=== PATIENT | male | born 1970 | race Caucasian/White ===

== ENCOUNTER 2018-02-15 17:21 | Inpatient (IN) | payer MEDICARE, OTHER ==
[~2018-02-15] VITALS: Ht 185.4 cm; Wt 81.4 kg
[~2018-02-15 17:21] MED LIST: COUM10TA PO; HYDR-3129 PO; LIPI10TA PO; LORA-474 PO
[2018-02-15 17:27] VITALS: BP 141/74; PULSE 94; RESP 20; TEMP 99; O2SAT 98
[2018-02-15 17:35] VITALS: BP 125/78; PULSE 89; RESP 18; TEMP 98.1; O2SAT 99
[2018-02-15 18:36] LABS: AUTOMATED NEUTROPHIL # 6.3 TH/MM3 (1.8-7.7); BASOPHIL # 0.1 TH/MM3 (0-0.2); EOSINOPHIL # 0.5 TH/MM3 (0-0.4); HEMATOCRIT 40.5 % (39.0-51.0); HEMOGLOBIN 14.1 GM/DL (13.0-17.0); LYMPH % 31.7 % (9.0-44.0); LYMPHOCYTE # 3.7 TH/MM3 (1.0-4.8); MEAN CELL VOLUME 85.9 FL (80.0-100.0); MEAN CORPUSCULAR HEMOGLOBIN 29.9 PG (27.0-34.0); MEAN CORPUSCULAR HGB CONC 34.8 % (32.0-36.0); MEAN PLATELET VOLUME 7.1 FL (7.0-11.0); MONO % 9.8 % (0.0-8.0); MONOCYTE # 1.1 TH/MM3 (0-0.9); NEUT % 53.5 % (16.0-70.0); PLATELET COUNT 439 TH/MM3 (150-450); RED BLOOD COUNT 4.71 MIL/MM3 (4.50-5.90); RED CELL DISTRIBUTION WIDTH 15.1 % (11.6-17.2); WHITE BLOOD COUNT 11.7 TH/MM3 (4.0-11.0)
[2018-02-15] MEDS ORDERED: LITH300T PO (18:50)
[2018-02-15] MEDS ORDERED: PAXI30TA7 PO (18:50)
[2018-02-15 19:01] LABS: ALBUMIN 3.4 GM/DL (3.4-5.0); ALT (GPT) 16 U/L (12-78); AST (GOT) 13 U/L (15-37); BICARBONATE 22.7 MEQ/L (21.0-32.0); BLOOD UREA NITROGEN 16 MG/DL (7-18); CALCIUM 8.8 MG/DL (8.5-10.1); CHLORIDE 102 MEQ/L (98-107); CREATININE 1.06 MG/DL (0.60-1.30); GLOMERULAR FILTRATION RATE 75 ML/MIN (>89); GLUCOSE,RANDOM 117 MG/DL (74-106); SODIUM (NA) 136 MEQ/L (136-145)
[2018-02-15 19:11] LABS: ALKALINE PHOSPHATASE 69 U/L (45-117); TOTAL BILIRUBIN ADULT 0.6 MG/DL (0.2-1.0); TOTAL PROTEIN 7.7 GM/DL (6.4-8.2)
[2018-02-15 20:36] VITALS: BP 112/77; PULSE 82; RESP 12
--- NOTE | 2018-02-15 21:20 | PD ---
HPI Chief Complaint: Psychiatric Symptoms Time Seen by Provider: 20:51 Travel History International Travel<30 days: No Contact w/Intl Traveler<30days: No Traveled to known affect area: No History of Present Illness HPI 47-year-old male presents the ED seeking voluntary psychiatric evaluation. Patient denies suicidal ideation. He does state that he is "sick of living this way." Patient states that he has been out of senior care since July, has not taken any psychiatric medications since that time. He states that he is essentially homeless, couch surfing among friends and occasionally staying with his . He is unsure of any formal psychiatric diagnosis and does not know which medications he was taking. He complains of 4/10 dull headache, similar to previous headaches. Denies other somatic complaints. He endorses daily cigarette smoking. Denies alcohol or illicit drug use. PFSH Past Medical History Medical History: Denies Significant Hx Arthritis: No Asthma: No Autoimmune Disease: No Blood Disorders: No Anxiety: Yes Depression: Yes Heart Rhythm Problems: No Cancer: No Cardiovascular Problems: No High Cholesterol: No Chemotherapy: No Chest Pain: No Congestive Heart Failure: No COPD: No Cerebrovascular Accident: Yes (2009 & TIA in 2013) Diabetes: No Patient Takes Glucophage: No Diminished Hearing: No Endocrine: No GERD: No Glaucoma: No Genitourinary: No Headaches: No Hepatitis: No Hiatal Hernia: No Hypertension: No Immune Disorder: No Kidney Stones: No Medical other: Yes Musculoskeletal: Yes (L5/S1 HERNIATION AND SLIPPED DISK) Neurologic: Yes Psychiatric: Yes Reproductive: No Respiratory: No Immunizations Current: No Migraines: No Myocardial Infarction: No Radiation Therapy: No Renal Failure: No Seizures: No Sickle Cell Disease: No Sleep Apnea: No Thyroid Disease: No Ulcer: No Tetanus Vaccination: < 5 Years ?: Not Past Surgical History Abdominal Surgery: No AICD: No Appendectomy: No Arteriovenous Shunt: No Cardiac Surgery: No Cholecystectomy: No Ear Surgery: No Endocrine Surgery: No Eye Surgery: No Genitourinary Surgery: No Gynecologic Surgery: No Insulin Pump: No Joint Replacement: No Oral Surgery: No Pacemaker: No Thoracic Surgery: No Social History Alcohol Use: No (Pt denies. ) Tobacco Use: Yes (1PPD) Substance Use: No Allergies-Medications (Allergen,Severity, Reaction): Coded Allergies: No Known Allergies (Verified , 11/05/14) Reported Meds & Prescriptions Reported Meds & Active Scripts Active Reported Paxil (Paroxetine HCl) 30 Mg Tab 60 Mg PO DAILY NEB [place] Carbonate ER ([place] Carbonate) 300 Mg Tab 300 Mg PO BID Review of Systems Except as stated in HPI: all other systems reviewed are Neg Physical Exam Narrative GENERAL: Well-nourished, well-developed white male no acute distress. SKIN: Focused skin assessment warm/dry. HEAD: Normocephalic. EYES: No scleral icterus. No injection or drainage. NECK: Supple, trachea midline. No JVD or lymphadenopathy. CARDIOVASCULAR: Regular rate and rhythm without murmurs, gallops, or rubs. RESPIRATORY: Breath sounds clear and equal bilaterally. No accessory muscle use. GASTROINTESTINAL: Abdomen soft, non-tender, nondistended. Active bowel sounds. MUSCULOSKELETAL: No cyanosis, or edema. Walks with a normal gait. NEUROLOGICAL: Awake and alert. Cranial nerves II through XII intact. Motor and sensory grossly within normal limits. Five out of 5 muscle strength in all muscle groups. Normal speech. BACK: Nontender without obvious deformity. No CVA tenderness. Data Data Last Documented VS Vital Signs Date Time Temp Pulse Resp B/P (MAP) Pulse Ox O2 Delivery O2 Flow Rate FiO2 02/15/18 20:36 82 12 112/77 (89) 02/15/18 17:35 98.1 99 Room Air Orders Orders Complete Blood Count With Diff (02/15/18 18:05) Comprehensive Metabolic Panel (02/15/18 18:05) Thyroid Stimulating Hormone (02/15/18 18:05) Psych Screen (02/15/18 18:05) Drug Screen, Random Urine (02/15/18 18:05) Alcohol (Ethanol) (02/15/18 18:05) Diet Regular Basic (02/15/18 Dinner) Labs Laboratory Tests Test 02/15/18 18:11 02/15/18 19:20 White Blood Count 11.7 TH/MM3 Red Blood Count 4.71 MIL/MM3 Hemoglobin 14.1 GM/DL Hematocrit 40.5 % Mean Corpuscular Volume 85.9 FL Mean Corpuscular Hemoglobin 29.9 PG Mean Corpuscular Hemoglobin Concent 34.8 % Red Cell Distribution Width 15.1 % Platelet Count 439 TH/MM3 Mean Platelet Volume 7.1 FL Neutrophils (%) (Auto) 53.5 % Lymphocytes (%) (Auto) 31.7 % Monocytes (%) (Auto) 9.8 % Eosinophils (%) (Auto) 4.0 % Basophils (%) (Auto) 1.0 % Neutrophils # (Auto) 6.3 TH/MM3 Lymphocytes # (Auto) 3.7 TH/MM3 Monocytes # (Auto) 1.1 TH/MM3 Eosinophils # (Auto) 0.5 TH/MM3 Basophils # (Auto) 0.1 TH/MM3 CBC Comment DIFF FINAL Differential Comment Blood Urea Nitrogen 16 MG/DL Creatinine 1.06 MG/DL Random Glucose 117 MG/DL Total Protein 7.7 GM/DL Albumin 3.4 GM/DL Calcium Level 8.8 MG/DL Alkaline Phosphatase 69 U/L Aspartate Amino Transf (AST/SGOT) 13 U/L Alanine Aminotransferase (ALT/SGPT) 16 U/L Total Bilirubin 0.6 MG/DL Sodium Level 136 MEQ/L Potassium Level 3.8 MEQ/L Chloride Level 102 MEQ/L Carbon Dioxide Level 22.7 MEQ/L Anion Gap 11 MEQ/L Estimat Glomerular Filtration Rate 75 ML/MIN Thyroid Stimulating Hormone 3rd Gen 1.200 uIU/ML Ethyl Alcohol Level LESS THAN 3 MG/DL Urine Opiates Screen NEG Urine Barbiturates Screen NEG Urine Amphetamines Screen NEG Urine Benzodiazepines Screen NEG Urine Cocaine Screen NEG Urine Cannabinoids Screen NEG MDM Medical Decision Making Medical Screen Exam Complete: Yes Emergency Medical Condition: Yes Differential Diagnosis Adjustment disorder versus anxiety versus bipolar versus depression versus dementia versus electrolyte disorder versus malingering versus mood disorder versus ODD versus psychosis versus PTSD versus schizophrenia versus schizoaffective disorder versus substance-induced mood disorder versus other Narrative Course 47-year-old male presents the ED seeking voluntary psychiatric evaluation. Patient denies suicidal ideation. He does state that he is "sick of living this way." Patient states that he has been out of senior care since July, has not taken any psychiatric medications since that time. He states that he is essentially homeless, couch surfing among friends and occasionally staying with his . He is unsure of any formal psychiatric diagnosis and does not know which medications he was taking. He complains of 4/10 dull headache, similar to previous headaches. Denies other somatic complaints. He endorses daily cigarette smoking. Denies alcohol or illicit drug use. Vitals reviewed. Physical exam is unremarkable. Patient was provided 800 mg ibuprofen. CBC, CMP , tox screen and alcohol level unremarkable. Patient is medically cleared for psychiatric evaluation. Karolina Castano February 15, 2018 21:20
[2018-02-15] MEDS ORDERED: IBUPROFEN 800 MG TAB PO ONE (21:30)
[2018-02-16 00:22] VITALS: BP 110/75; PULSE 63; RESP 18; TEMP 98.2; O2SAT 100
[2018-02-16 05:39] VITALS: BP 107/68; PULSE 68; RESP 18
--- NOTE | 2018-02-16 14:10 | HHI.HP ---
Provisional Diagnosis Admission Date 02/16/2018 [place] I. 1. Adjustment disorder with depressed mood Rule out some degree of symptom exaggeration or malingering [place] II. 1. Rule out some degree of personality disorder Certification of Person's Competence To Provide Express and Informed Consent I have personally examined Mitchell Antonio, III , a person being served at [facility] on, February 16, 2018 14:10. Express and informed consent means consent voluntarily given in writing, by a competent person, after sufficient explanation and disclosure of the subject matter involved to enable the person to make a knowing and willful decision without any element of force, fraud, deceit, duress, or other form of constraint or coercion. This person is 18 years of age or older, is not now known to be incompetent to consent to treatment with a guardian advocate, and does not have a health care surrogate or proxy currently making medical treatment decisions. I have found this person to be one of the following: [x] Competent to provide express and informed consent, as defined above, for voluntary admission to this facility and is competent to provide express and informed consent for treatment. He/she has the consistent capacity to make well reasoned, willful, and knowing decisions concerning his or her medical or mental health treatment. The person fully and consistently understands the purpose of the admission for examination/placement and is fully capable of personally exercising all rights assured [place] Incompetent to provide express and informed consent to voluntary admission, and this is incompetent to provide express and informed consent to treatment. The person must be transferred to involuntary status and a petition for a guardian advocate filed with the Circuit Court. [] Refusing to provide express and informed consent to voluntary admission but is competent to provide express and informed consent for treatment. The person must be discharged or transferred to involuntary status. Form shall be completed within 24 hours of a person's arrival at the receiving facility and filed in the clinical record of each person: 1. Admitted on a voluntary basis 2. Permitted to provide express and informed consent to his/her own treatment 3. Allowed to transfer from involuntary to voluntary status 4. Prior to permitting a person to consent to his or her own treatment after having been previously found incompetent to consent to treatment. History of Present Illness Capacity: Has Capacity Psych Chief Complaint: Depression HPI Mr. Antonio is a 47-year-old male with a chart history of adjustment disorder, substance related mood disorder, personality disorder who presented to the emergency department voluntarily for psychiatric evaluation. He was most recently psychiatrically admitted here under Dr. Yousif in 2013. Electronic medical record reviewed. Patient seen and examined. Chart reviewed. Case discussed with nursing staff. On my examination today, patient is an inconsistent historian. For example, he denies audiovisual hallucinations to me but reported them to the psychiatric screener. Likewise, the patient reported a legal history to the psychiatric screener but denies this to me. I also gather that the patient has a significant substance use history, but he denies any such issues to me. Some degree of manipulation/secondary gain is certainly in the differential. In any event, the patient reports to me that for the last few weeks he has been feeling increasingly sad and depressed. He tells me that he has suffered a lot of losses. He endorses a perfusion of psychiatric symptoms including poor sleep , poor appetite, poor energy, decreased self-care, social withdrawal, anxiety/ worry, nightmares/flashbacks to history of trauma to name a few. He denies any audiovisual hallucinations presently. I can appreciate no delusional material. He reports that he was contemplating suicide yesterday evening although he denies any suicidal ideation presently. No reported urge to hurt himself on the inpatient unit. No hypomanic or manic symptoms presently, nor can I elicit any history consistent with hypomania or solitario. He tells me "life has been a horrible freakin' struggle." Remainder of the psychiatric ROS is negative. No acute physical complaints although the patient does have numerous chronic musculoskeletal pain complaints. Past psychiatric history: The patient is unsure of previous psychiatric diagnoses. He is not presently under the care of a psychiatrist. Most recent psychiatric admission was here at [facility]. He denies a history of suicide attempts noting "I usually come here" first. He reports that trazodone has caused priapism in the past, and I have added this as an adverse reaction. He reports that he has done the best with Strattera and Xanax, although in context there seems to be a distinct possibility that he is simply seeking for these medications. Family history: The patient endorses family history of some sort of mental illness although he is unsure of what. He denies a family history of suicide. Chemical dependency history: The patient denies any abuse of drugs or alcohol. Social history: The patient reports that he is living with his of 20 years. He describes their relationship as "confusing." He has 3 children. He has 11 grade education. He describes himself as "partially disabled." He denies any or legal history, although psychiatric screener did document released from nursing home in the fall of last year. He denies any access to guns or firearms. He is a Muslim and says that this is a significant source of support for him. He endorses a history of some sort of childhood trauma. 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 He also reports a history of chronic back pain and other chronic musculoskeletal pains. Reported Medications Paroxetine (Paxil) 30 Mg Tab, 60 MG PO DAILY NEB, #30 TAB 0 Refills 02/15/18 [place] Carbonate ER ([place] Carbonate ER) 300 Mg Tab, 300 MG PO BID, TAB 0 Refills 02/15/18 Discontinued Reported Medications Hydrocodone-Acetaminophen 10-325 mg (Gary 10-325 mg) Acetaminophen 325/10 Hydrocodone Tab, 1 TAB PO BID Y for PAIN, TAB 11/05/14 Atorvastatin (Lipitor 10 Mg Tab) 10 Mg Tab, 1 TAB PO HS, TAB 08/18/14 Warfarin Sodium (Coumadin 10 mg) Warfarin Sodium 10 mg Tab, 1 TAB PO DAILY, TAB 08/18/14 Discontinued Scripts Lorazepam (Ativan) 1 Mg Tab, 1 MG PO BID Y for ANXIETY, #60 TAB 0 Refills Prov:Kevyn Tracy MD 11/19/14 Patient reports that he takes no home medications Patient's Strengths (min. 2) In a monitored setting. Verbally fluent. Physical Exam Physical exam completed by ED provider. On my examination today, the patient appears to be in no acute physical distress. No motor abnormalities noted, except the patient does have some left-sided weakness. Labs and vitals reviewed : Vital Signs Vital Signs Date Time Temp Pulse Resp B/P (MAP) Pulse Ox O2 Delivery O2 Flow Rate FiO2 02/16/18 05:39 68 18 107/68 (81) Room Air 02/16/18 00:22 98.2 100 Lab Results Test 02/15/18 18:11 02/15/18 19:20 White Blood Count 11.7 TH/MM3 Red Blood Count 4.71 MIL/MM3 Hemoglobin 14.1 GM/DL Hematocrit 40.5 % Mean Corpuscular Volume 85.9 FL Mean Corpuscular Hemoglobin 29.9 PG Mean Corpuscular Hemoglobin Concent 34.8 % Red Cell Distribution Width 15.1 % Platelet Count 439 TH/MM3 Mean Platelet Volume 7.1 FL Neutrophils (%) (Auto) 53.5 % Lymphocytes (%) (Auto) 31.7 % Monocytes (%) (Auto) 9.8 % Eosinophils (%) (Auto) 4.0 % Basophils (%) (Auto) 1.0 % Neutrophils # (Auto) 6.3 TH/MM3 Lymphocytes # (Auto) 3.7 TH/MM3 Monocytes # (Auto) 1.1 TH/MM3 Eosinophils # (Auto) 0.5 TH/MM3 Basophils # (Auto) 0.1 TH/MM3 CBC Comment DIFF FINAL Differential Comment Blood Urea Nitrogen 16 MG/DL Creatinine 1.06 MG/DL Random Glucose 117 MG/DL Total Protein 7.7 GM/DL Albumin 3.4 GM/DL Calcium Level 8.8 MG/DL Alkaline Phosphatase 69 U/L Aspartate Amino Transf (AST/SGOT) 13 U/L Alanine Aminotransferase (ALT/SGPT) 16 U/L Total Bilirubin 0.6 MG/DL Sodium Level 136 MEQ/L Potassium Level 3.8 MEQ/L Chloride Level 102 MEQ/L Carbon Dioxide Level 22.7 MEQ/L Anion Gap 11 MEQ/L Estimat Glomerular Filtration Rate 75 ML/MIN Thyroid Stimulating Hormone 3rd Gen 1.200 uIU/ML Ethyl Alcohol Level LESS THAN 3 MG/DL Urine Opiates Screen NEG Urine Barbiturates Screen NEG Urine Amphetamines Screen NEG Urine Benzodiazepines Screen NEG Urine Cocaine Screen NEG Urine Cannabinoids Screen NEG Mental Status Examination Appearance: Disheveled Consciousness: Alert Orientation: x4 Motor Activity: Other (No motor abnormalities noted) Speech: Hesitant Language: Adequate Fund of Knowledge: Adequate Attention and Concentration: Adequate Memory: Unremarkable (Grossly intact on clinical exam) Mood: Anxious, Other (Depressed) Affect: Other (Dysphoric) Thought Process & Associations: Intact Thought Content: Appropriate Hallucination Type: None Delusion Type: None Suicidal Ideation: No (Denies presently but says that he was experiencing suicidal ideation overnight) Suicidal Plan: No Suicidal Intention: No (No reported urge to hurt himself on the inpatient unit) Homicidal Ideation: No Homicidal Plan: No Homicidal Intention: No Insight: Fair Judgment: Impulsive Assessment & Plan Problem List: (1) Adjustment disorder with depressed mood ICD Codes: F43.21 - Adjustment disorder with depressed mood Assessment & Plan 47-year-old male with psychiatric history as detailed above who presents voluntarily for psychiatric evaluation. On my examination today, the patient elaborates a variety of psychiatric symptomatology, mostly depressive in nature. There is a somewhat variable and manipulative quality to the patient's history, and some degree of symptom exaggeration or malingering is certainly in the differential. It is also possible that the patient has some degree of personality disorder. Patient prioritizes improvement in sleep along with mood in selection of medication, and so after a discussion with the patient of his various options a trial of Remeron seems most reasonable. I will plan to admit the patient to the inpatient psychiatric unit for safety, observation and stabilization. Admit inpatient. Voluntary status. Initiate Remeron 15 mg at bedtime for mood with plans to titrate to effect. Atarax as needed for anxiety. Cogentin as needed for EPS. Benadryl as needed for sleep. PT/OT/falls precautions. Check CBC to follow up mild leukocytosis, BMP to follow up decreased GFR, hemoglobin A1c and lipid panel in the morning. Vitals every shift. Counselor to see. Collateral information. Disposition planning. Estimated length of stay: 5-7 days. Discharge Planning Pending psychiatric stabilization Request HC Surrog/Guard Advoc?: No Pritesh Machuca MD February 16, 2018 14:10
[2018-02-16] MEDS ORDERED: BENZTROPINE MESYLATE 1 MG TAB PO PRN (14:15)
[2018-02-16] MEDS ORDERED: hydrOXYzine HCL 50 MG TAB PO PRN (14:15)
[2018-02-16] MEDS ORDERED: MAGNESIUM HYDROXIDE SUSP 30 ML CUP PO PRN (14:15)
[2018-02-16] MEDS ORDERED: NICOTINE 21 MG/24 HR PATCH T-DERMAL PRN (14:15)
[2018-02-16] MEDS ORDERED: ALUMINUM/MAGNESIUM/SIMETH 30 ML CUP PO PRN (14:15)
[2018-02-16] MEDS ORDERED: ACETAMINOPHEN 325 MG TAB PO PRN (14:15)
[2018-02-16] MEDS ORDERED: BENZTROPINE MESYLATE 2 MG/2 ML VIAL IM PRN (14:15)
[2018-02-16] MEDS ORDERED: REMOVE OLD NICODERM (NICOTINE) PATCH T-DERMAL PRN (14:30)
[2018-02-16 16:43] VITALS: BP 107/63; PULSE 70; RESP 16; TEMP 98; O2SAT 98
[2018-02-16] MEDS ORDERED: diphenhydrAMINE HCL 50 MG CAP PO PRN (21:00)
[2018-02-16] MEDS: MIRTAZAPINE 15 MG TAB PO SCH (21:19)
[2018-02-17 06:17] VITALS: BP 110/66; PULSE 69; RESP 16; TEMP 98.2; O2SAT 98
[2018-02-17] MEDS: IBUPROFEN 600 MG TAB PO PRN ×3 (06:59→19:38)
--- NOTE | 2018-02-17 09:45 | HHI.PYPN ---
Subjective Chief Complaint: Depression Remarks Patient was initially admitted by Dr. Pritesh Machuca's H&P reviewed and agreed with. I have done the initial psychiatric template orders and review of medication reconciliation. Patient is seen in his room with nurse harrison Black, chart reviewed, patient complaint medications, patient discussed with nurse. Patient laying quietly in bed states he recognizes me from prior contact and number of years ago. Patient presented today similar to his presentation with Dr. Machuca. He is vague and rambling and sometimes contradictory with his history. Complaining of many stressors in bed things happened in the past without being specific about them. He is vague about suicidality. The would take the suicide pill. He does deny voices at this time. He has been compliant with medications though staff also notices some subtle drug seeking for more potent medications. For now continue treatment no change Review of Systems Except as stated in HPI: all other systems reviewed are Neg Mental Status Examination Appearance: Disheveled Consciousness: Alert Orientation: x4 Motor Activity: Other (No motor abnormalities noted) Speech: Hesitant Language: Adequate Fund of Knowledge: Adequate Attention and Concentration: Adequate Memory: Unremarkable (Grossly intact on clinical exam) Mood: Anxious, Other (Depressed) Affect: Other (Dysphoric) Thought Process & Associations: Intact Thought Content: Appropriate Hallucination Type: None Delusion Type: None Suicidal Ideation: No (Denies presently but says that he was experiencing suicidal ideation overnight) Suicidal Plan: No Suicidal Intention: No (No reported urge to hurt himself on the inpatient unit) Homicidal Ideation: No Homicidal Plan: No Homicidal Intention: No Insight: Fair Judgment: Impulsive Results Vitals/IOs Vital Signs Date Time Temp Pulse Resp B/P (MAP) Pulse Ox O2 Delivery O2 Flow Rate FiO2 02/17/18 06:17 98.2 69 16 110/66 (81) 98 02/16/18 05:39 Room Air Assessment & Plan Problem List: (1) Adjustment disorder with depressed mood ICD Codes: F43.21 - Adjustment disorder with depressed mood Assessment & Plan Estimated LOS: days patient is somewhat depressed making vague suicidal statements though there may be a degree of manipulation involved with this. For now continue treatment no change Justification for Cont. Inpt. At this time patient would decompensate and placed on a lower level of care Discharge Planning Possible return home with family Request HC Surrog/Guard Advoc?: No Kevyn Tracy MD February 17, 2018 09:45
[2018-02-17] MEDS: hydrOXYzine HCL 50 MG TAB PO PRN ×2 (13:02→19:38)
[2018-02-17 14:50] LABS: AUTOMATED NEUTROPHIL # 7.3 TH/MM3 (1.8-7.7); BASOPHIL # 0.1 TH/MM3 (0-0.2); BASOPHIL % 0.9 % (0.0-2.0); EOSINOPHIL # 0.3 TH/MM3 (0-0.4); EOSINOPHIL % 2.8 % (0.0-4.0); HEMATOCRIT 44.1 % (39.0-51.0); HEMOGLOBIN 14.5 GM/DL (13.0-17.0); LYMPH % 25.6 % (9.0-44.0); MEAN CELL VOLUME 86.8 FL (80.0-100.0); MEAN CORPUSCULAR HEMOGLOBIN 28.5 PG (27.0-34.0); MEAN CORPUSCULAR HGB CONC 32.8 % (32.0-36.0); MONOCYTE # 0.9 TH/MM3 (0-0.9); NEUT % 62.7 % (16.0-70.0); PLATELET COUNT 468 TH/MM3 (150-450); RED BLOOD COUNT 5.08 MIL/MM3 (4.50-5.90); RED CELL DISTRIBUTION WIDTH 15.4 % (11.6-17.2); WHITE BLOOD COUNT 11.6 TH/MM3 (4.0-11.0)
[2018-02-17 15:14] LABS: BICARBONATE 26.3 MEQ/L (21.0-32.0); BLOOD UREA NITROGEN 19 MG/DL (7-18); CALCIUM 8.8 MG/DL (8.5-10.1); CHLORIDE 104 MEQ/L (98-107); CHOLESTEROL 173 MG/DL (120-200); CREATININE 1.04 MG/DL (0.60-1.30); GLOMERULAR FILTRATION RATE 77 ML/MIN (>89); GLUCOSE,RANDOM 104 MG/DL (74-106); SODIUM (NA) 140 MEQ/L (136-145); TRIGLYCERIDES 218 MG/DL (42-150)
[2018-02-17 15:17] LABS: HDL CHOLESTEROL 33.9 MG/DL (40.0-60.0); LDL CHOLESTEROL 96 MG/DL (0-99)
[2018-02-17 18:00] VITALS: BP 112/59; PULSE 82; RESP 17; TEMP 98.5; O2SAT 100
[2018-02-17] MEDS: MIRTAZAPINE 15 MG TAB PO SCH (21:00)
[2018-02-18 06:18] VITALS: BP 134/73; PULSE 57; RESP 16; TEMP 97.8; O2SAT 99
[2018-02-18] MEDS: hydrOXYzine HCL 50 MG TAB PO PRN ×2 (06:26→14:55)
[2018-02-18] MEDS: IBUPROFEN 600 MG TAB PO PRN ×2 (06:26→21:35)
--- NOTE | 2018-02-18 13:36 | HHI.PYPN ---
Subjective Chief Complaint: Depression Remarks Chart reviewed and discussed with nurse. Patient in the day room talking with other patients. Patient endorses that he feels depressed and that his is struggling at home. He states, " since my stroke, I am a burden to my and my family." He states that he doesn't think he should return home and that he might be better in a placement. He states that the Remeron may help him sleep, but that he is not helping him regarding how he feels. He states that in the past he has been on Cymbalta and that did help. When asked about his suicidal thoughts he responds, " I have thoughts everyday, but I don't have a plan or do I feel I would ever act on my thoughts." Mental Status Examination Appearance: Disheveled Consciousness: Alert Orientation: x4 Motor Activity: Other (No motor abnormalities noted) Speech: Hesitant Language: Adequate Fund of Knowledge: Adequate Attention and Concentration: Adequate Memory: Unremarkable (Grossly intact on clinical exam) Mood: Anxious, Other (Depressed) Affect: Other (Dysphoric) Thought Process & Associations: Intact Thought Content: Appropriate Hallucination Type: None Delusion Type: None Suicidal Ideation: No (Denies presently but says that he was experiencing suicidal ideation overnight) Suicidal Plan: No Suicidal Intention: No (No reported urge to hurt himself on the inpatient unit) Homicidal Ideation: No Homicidal Plan: No Homicidal Intention: No Insight: Fair Judgment: Impulsive Results Labs Test 02/17/18 14:08 White Blood Count 11.6 TH/MM3 Red Blood Count 5.08 MIL/MM3 Hemoglobin 14.5 GM/DL Hematocrit 44.1 % Mean Corpuscular Volume 86.8 FL Mean Corpuscular Hemoglobin 28.5 PG Mean Corpuscular Hemoglobin Concent 32.8 % Red Cell Distribution Width 15.4 % Platelet Count 468 TH/MM3 Mean Platelet Volume 7.0 FL Neutrophils (%) (Auto) 62.7 % Lymphocytes (%) (Auto) 25.6 % Monocytes (%) (Auto) 8.0 % Eosinophils (%) (Auto) 2.8 % Basophils (%) (Auto) 0.9 % Neutrophils # (Auto) 7.3 TH/MM3 Lymphocytes # (Auto) 3.0 TH/MM3 Monocytes # (Auto) 0.9 TH/MM3 Eosinophils # (Auto) 0.3 TH/MM3 Basophils # (Auto) 0.1 TH/MM3 CBC Comment DIFF FINAL Differential Comment Blood Urea Nitrogen 19 MG/DL Creatinine 1.04 MG/DL Random Glucose 104 MG/DL Calcium Level 8.8 MG/DL Sodium Level 140 MEQ/L Potassium Level 4.1 MEQ/L Chloride Level 104 MEQ/L Carbon Dioxide Level 26.3 MEQ/L Anion Gap 10 MEQ/L Estimat Glomerular Filtration Rate 77 ML/MIN Triglycerides Level 218 MG/DL Cholesterol Level 173 MG/DL LDL Cholesterol 96 MG/DL HDL Cholesterol 33.9 MG/DL Cholesterol/HDL Ratio 5.10 RATIO Vitals/IOs Vital Signs Date Time Temp Pulse Resp B/P (MAP) Pulse Ox O2 Delivery O2 Flow Rate FiO2 02/18/18 06:18 97.8 57 16 134/73 (93) 99 02/16/18 05:39 Room Air Intake and Output 02/18/18 02/18/18 02/19/18 08:00 16:00 00:00 Intake Total 480 ml Balance 480 ml Assessment & Plan Problem List: (1) Adjustment disorder with depressed mood ICD Codes: F43.21 - Adjustment disorder with depressed mood Assessment & Plan: Patient is a 47 y/o man with children who had a stroke. He has limitations with his left side. He feels that he is a burden to his family and endorses that he has been depressed. Denies suicidal ideations. Asking to be prescribed Cymbalta. Assessment & Plan Estimated LOS: days Justification for Cont. Inpt. Moving patient to a lower level of care may result in his decompensation. Request HC Surrog/Guard Advoc?: Briseyda Vazquez February 18, 2018 13:36
[2018-02-18 18:00] VITALS: BP 107/60; PULSE 75; RESP 18; TEMP 97.9; O2SAT 98
[2018-02-18] MEDS: MIRTAZAPINE 15 MG TAB PO SCH (21:29)
[2018-02-19 05:14] VITALS: BP 105/63; PULSE 72; RESP 16; TEMP 98; O2SAT 98
[2018-02-19] MEDS: hydrOXYzine HCL 50 MG TAB PO PRN ×2 (06:54→13:44)
[2018-02-19] MEDS: IBUPROFEN 600 MG TAB PO PRN ×3 (06:55→21:48)
[2018-02-19 12:58] LABS: HEMOGLOBIN A1C 5.9 % (4.3-6.0)
--- NOTE | 2018-02-19 14:55 | HHI.PYPN ---
Subjective Chief Complaint: Depression Remarks Patient seen and examined with nurse in weekend coverage. Chart reviewed. Case discussed with nursing staff who notes patient is irritable and somewhat entitled. On my examination today, the patient reports that he feels "awful." He tells me that his outlook is negative and he feels like he is isolating more. He complains of ongoing poor sleep. He does not describe any active suicidal ideation but issues somewhat manipulative seeming threats of what he might do on discharge such as "I am afraid I am going to go out and things will not be good." He feels that he is in need of something to help control mood instability. No side effects from medications. No physical complaints. Review of Systems Except as stated in HPI: all other systems reviewed are Neg Mental Status Examination Appearance: Disheveled Consciousness: Alert Orientation: x4 Motor Activity: Other (No abnormal motor movements noted) Speech: Hesitant Language: Adequate Fund of Knowledge: Adequate Attention and Concentration: Adequate Memory: Unremarkable (Grossly intact on clinical exam) Mood: Irritable, Other (Dysphoric) Affect: Other (Restricted) Thought Process & Associations: Intact Thought Content: Appropriate Hallucination Type: None Delusion Type: None Suicidal Ideation: No (No SI presently but see above) Homicidal Ideation: No Insight: Fair Judgment: Impulsive Results Labs Labs reviewed Vitals/IOs Vital Signs Date Time Temp Pulse Resp B/P (MAP) Pulse Ox O2 Delivery O2 Flow Rate FiO2 02/19/18 05:14 98.0 72 16 105/63 (77) 98 02/16/18 05:39 Room Air Assessment & Plan Problem List: (1) Adjustment disorder with depressed mood ICD Codes: F43.21 - Adjustment disorder with depressed mood Assessment & Plan Inadequate response to current therapy. Titrate Remeron to 30 mg at bedtime to target dysphoria. Add low-dose Depakote DR 250 mg twice daily for mood stabilization. LFTs and platelets okay. Plan to check a level after appropriate interval. R/B/A for medications discussed with patient. Continue to monitor on inpatient unit. Continue other medications and care as ordered. Justification for Cont. Inpt. Med changes. Risk for decompensation in less restrictive environment. Discharge Planning As ordered by primary psychiatrist Request HC Surrog/Guard Advoc?: No Pritesh Machuca MD February 19, 2018 14:55
[2018-02-19 19:05] VITALS: BP 110/60; PULSE 72; RESP 16; TEMP 98.2; O2SAT 99
[2018-02-19] MEDS: DIVALPROEX SODIUM DELAYED RELEASE 250 MG TAB PO SCH (21:11)
[2018-02-19] MEDS: MIRTAZAPINE 15 MG TAB PO SCH (21:12)
[2018-02-20 06:00] VITALS: BP 112/60; PULSE 72; RESP 16; TEMP 97.8; O2SAT 98
[2018-02-20] MEDS: hydrOXYzine HCL 50 MG TAB PO PRN ×3 (06:27→20:16)
[2018-02-20] MEDS: IBUPROFEN 600 MG TAB PO PRN ×3 (06:27→20:16)
[2018-02-20] MEDS: DIVALPROEX SODIUM DELAYED RELEASE 250 MG TAB PO SCH ×2 (09:35→20:16)
--- NOTE | 2018-02-20 14:48 | HHI.PYPN ---
Subjective Chief Complaint: Depression Remarks Reviewed electronic medical records discussed case with staff. Follow-up was conducted in patient's room. He was found lying on the bed with blanket over his head. He reports that he has not been sleeping well but his appetite is been okay. He endorses he has been attending therapy in groups. Denies any side effects from the medications however he thinks "the doses to lower 90s something different for anxiety". His mood and affect are irritable. He seems to exhibit some oppositional cluster B type traits during our discussion. Mental Status Examination Appearance: Disheveled Consciousness: Alert Orientation: x4 Motor Activity: Other (No abnormal motor movements noted) Speech: Hesitant Language: Adequate Fund of Knowledge: Adequate Attention and Concentration: Adequate Memory: Unremarkable (Grossly intact on clinical exam) Mood: Irritable, Other (Dysphoric) Affect: Other (Restricted) Thought Process & Associations: Intact Thought Content: Appropriate Hallucination Type: None Delusion Type: None Suicidal Ideation: No (No SI presently but see above) Homicidal Ideation: No Insight: Fair Judgment: Impulsive Results Vitals/IOs Vital Signs Date Time Temp Pulse Resp B/P (MAP) Pulse Ox O2 Delivery O2 Flow Rate FiO2 02/20/18 06:00 97.8 72 16 112/60 (77) 98 Assessment & Plan Problem List: (1) Adjustment disorder with depressed mood ICD Codes: F43.21 - Adjustment disorder with depressed mood Assessment & Plan Estimated LOS: Continue with treatment plan as ordered. Patient will be reevaluated by his attending psychiatrist tomorrow. Days Justification for Cont. Inpt. Moving this patient to a lower level of care could result in a decompensation. Request HC Surrog/Guard Advoc?: No Giovanna Edge February 20, 2018 14:48
[2018-02-20 18:19] VITALS: BP 114/68; PULSE 74; RESP 16; TEMP 98; O2SAT 98
[2018-02-20] MEDS: MIRTAZAPINE 15 MG TAB PO SCH (20:15)
[2018-02-21 06:17] VITALS: BP 120/50; PULSE 63; RESP 16; TEMP 97.5; O2SAT 98
[2018-02-21] MEDS: hydrOXYzine HCL 50 MG TAB PO PRN ×3 (07:32→23:01)
[2018-02-21] MEDS: IBUPROFEN 600 MG TAB PO PRN ×3 (07:33→23:00)
[2018-02-21] MEDS: DIVALPROEX SODIUM DELAYED RELEASE 250 MG TAB PO SCH ×2 (09:10→21:17)
--- NOTE | 2018-02-21 13:03 | HHI.PYPN ---
Subjective Chief Complaint: Depression Remarks Patient seen in exam room with nurse [place], chart reviewed, patient complaint medications. Patient complains of continued insomnia both initial and mid we will discontinue Benadryl at at bedtime and add Atarax 100 mg at at bedtime. She also complains also of anxiety the patient denies suicidality homicidality voices or visions. Patient states he also did well on Cymbalta we will add that at 30 mg twice daily Review of Systems Except as stated in HPI: all other systems reviewed are Neg Mental Status Examination Appearance: Disheveled Consciousness: Alert Orientation: x4 Motor Activity: Other (No abnormal motor movements noted) Speech: Hesitant Language: Adequate Fund of Knowledge: Adequate Attention and Concentration: Adequate Memory: Unremarkable (Grossly intact on clinical exam) Mood: Irritable, Other (Dysphoric) Affect: Other (Restricted) Thought Process & Associations: Intact Thought Content: Appropriate Hallucination Type: None Delusion Type: None Suicidal Ideation: No (No SI presently but see above) Homicidal Ideation: No Insight: Fair Judgment: Impulsive Results Vitals/IOs Vital Signs Date Time Temp Pulse Resp B/P (MAP) Pulse Ox O2 Delivery O2 Flow Rate FiO2 02/21/18 06:17 97.5 63 16 120/50 (73) 98 Assessment & Plan Problem List: (1) Adjustment disorder with depressed mood ICD Codes: F43.21 - Adjustment disorder with depressed mood Assessment & Plan Estimated LOS: days patient continues somewhat depressed and anxious with sleep issues with discontinue the at bedtime Benadryl and Atarax 100 mg at bedtime, and also add Cymbalta 30 mg twice daily Justification for Cont. Inpt. At this time patient would decompensate a place to the lower level of care Discharge Planning Return home to family Request HC Surrog/Guard Advoc?: No Kevyn Tracy MD February 21, 2018 13:03
[2018-02-21] MEDS: DULoxetine HCl DR 30 MG CAP PO SCH ×2 (14:21→21:16)
[2018-02-21 17:42] VITALS: BP 118/78; PULSE 76; RESP 18; TEMP 98.2; O2SAT 99
[2018-02-21] MEDS: MIRTAZAPINE 15 MG TAB PO SCH (21:17)
[2018-02-22 06:35] VITALS: BP 103/55; PULSE 65; RESP 18; TEMP 97.5; O2SAT 96
[2018-02-22] MEDS: DIVALPROEX SODIUM DELAYED RELEASE 250 MG TAB PO SCH ×2 (09:00→21:38)
[2018-02-22] MEDS: DULoxetine HCl DR 30 MG CAP PO SCH ×3 (09:01→21:38)
[2018-02-22] MEDS: hydrOXYzine HCL 50 MG TAB PO PRN ×3 (09:07→23:13)
--- NOTE | 2018-02-22 15:58 | HHI.PYPN ---
Subjective Chief Complaint: Depression Remarks Patient seen and maya with nurse Thu, chart reviewed, patient compliant medications. Patient discussed with nurse. Patient overall calmer more focused with me less irritable and paranoid. Says he slept for about 5 hours last night, was feeling better. He denies suicidality homicidality voices or visions. He does state he has a place to stay when he leaves here. For now continue treatment consider discharge tomorrow if he continues to improve Review of Systems Except as stated in HPI: all other systems reviewed are Neg Mental Status Examination Appearance: Disheveled Consciousness: Alert Orientation: x4 Motor Activity: Other (No abnormal motor movements noted) Speech: Hesitant Language: Adequate Fund of Knowledge: Adequate Attention and Concentration: Adequate Memory: Unremarkable (Grossly intact on clinical exam) Mood: Irritable, Other (Dysphoric) Affect: Other (Restricted) Thought Process & Associations: Intact Thought Content: Appropriate Hallucination Type: None Delusion Type: None Suicidal Ideation: No (No SI presently but see above) Homicidal Ideation: No Insight: Fair Judgment: Impulsive Results Vitals/IOs Vital Signs Date Time Temp Pulse Resp B/P (MAP) Pulse Ox O2 Delivery O2 Flow Rate FiO2 02/22/18 06:35 97.5 65 18 103/55 (71) 96 Assessment & Plan Problem List: (1) Adjustment disorder with depressed mood ICD Codes: F43.21 - Adjustment disorder with depressed mood Assessment & Plan Estimated LOS: days patient continues somewhat depressed though his depression is lifting he is more focused and more reactive with occasional small smile. Compliant medication. Consider discharge tomorrow Justification for Cont. Inpt. At this time patient may decompensate if not placed in appropriate level of care , consider possible discharge tomorrow Discharge Planning Possible discharge tomorrow to his own home Request HC Surrog/Guard Advoc?: No Kevyn Tracy MD February 22, 2018 15:58
[2018-02-22 17:59] VITALS: BP 105/68; PULSE 81; RESP 20; TEMP 97.4; O2SAT 99
[2018-02-22] MEDS: MIRTAZAPINE 15 MG TAB PO SCH (21:38)
[2018-02-22] MEDS: IBUPROFEN 600 MG TAB PO PRN (23:14)
[2018-02-23 06:12] VITALS: BP 94/52; PULSE 67; RESP 18; TEMP 97.4; O2SAT 98
[2018-02-23 06:42] VITALS: BP 100/60; PULSE 68
[2018-02-23] MEDS: DIVALPROEX SODIUM DELAYED RELEASE 250 MG TAB PO SCH ×2 (08:33→21:04)
[2018-02-23] MEDS: DULoxetine HCl DR 30 MG CAP PO SCH ×3 (08:33→21:00)
[2018-02-23] MEDS: IBUPROFEN 600 MG TAB PO PRN ×2 (08:39→22:58)
--- NOTE | 2018-02-23 12:35 | HHI.PYPN ---
Subjective Chief Complaint: Depression Remarks Patient is seen in the maya with nurse Thu, chart reviewed, patient complaint medications, patient discussed with nurse. Patient overall calm and cooperative at this time, showing no signs of anxiety, though he continues to ask for something for his "anxiety." He continues to sleep better with the Atarax. Staff has been working with a possible placement at [facility]. Patient is aware of this possible referral on the fact that sales representative printing may be speaking with him today. It appears she is having some question about his willingness to go there. At this time I feel patient is reached maximum benefit of this hospitalization. Patient will be discharged tomorrow either to [facility] if a beds available and he agrees to it or he will be discharged to himself and he can find his own placement. Review of Systems Except as stated in HPI: all other systems reviewed are Neg Mental Status Examination Appearance: Disheveled Consciousness: Alert Orientation: x4 Motor Activity: Other (No abnormal motor movements noted) Speech: Hesitant Language: Adequate Fund of Knowledge: Adequate Attention and Concentration: Adequate Memory: Unremarkable (Grossly intact on clinical exam) Mood: Irritable, Other (Dysphoric) Affect: Other (Restricted) Thought Process & Associations: Intact Thought Content: Appropriate Hallucination Type: None Delusion Type: None Suicidal Ideation: No (No SI presently but see above) Homicidal Ideation: No Insight: Fair Judgment: Impulsive Results Vitals/IOs Vital Signs Date Time Temp Pulse Resp B/P (MAP) Pulse Ox O2 Delivery O2 Flow Rate FiO2 02/23/18 06:42 68 100/60 (73) Automatic Cuff 02/23/18 06:12 97.4 18 98 Assessment & Plan Problem List: (1) Adjustment disorder with depressed mood ICD Codes: F43.21 - Adjustment disorder with depressed mood Assessment & Plan Estimated LOS: days patient continues to improve, now denies suicidality or homicidality voice or visions. There is possible placement at [facility] for this young man. Patient to be discharged tomorrow either to [facility] or if refuses that placement discharged to himself Justification for Cont. Inpt. At this time patient would decompensate if not placed in the appropriate level of care Discharge Planning See above Request HC Surrog/Guard Advoc?: No Kevyn Tracy MD February 23, 2018 12:35
[2018-02-23] MEDS: hydrOXYzine HCL 50 MG TAB PO PRN ×2 (15:30→22:57)
[2018-02-23 17:56] VITALS: BP 115/64; PULSE 89; RESP 18; TEMP 97.6; O2SAT 97
[2018-02-23] MEDS: MIRTAZAPINE 15 MG TAB PO SCH (21:03)
[2018-02-24 05:19] VITALS: BP 94/55; PULSE 60; RESP 16; TEMP 98.2; O2SAT 99
[2018-02-24] MEDS: DIVALPROEX SODIUM DELAYED RELEASE 250 MG TAB PO SCH (08:29)
[2018-02-24] MEDS: DULoxetine HCl DR 30 MG CAP PO SCH (08:29)
[2018-02-24] MEDS: hydrOXYzine HCL 50 MG TAB PO PRN ×2 (08:50→14:57)
[2018-02-24] MEDS ORDERED: DIVA250T PO (14:21)
[2018-02-24] MEDS ORDERED: DULO1CAP2 PO (14:21)
[2018-02-24] MEDS ORDERED: REME30TA PO (14:21)
--- NOTE | 2018-02-24 14:26 | HHI.DS ---
Psychiatry Discharge Summary Inpatient Psychiatric care?: Yes Advance Directive: No Mental Health AdvanceDirective: No Health Care Proxy: No Admission Admission Date February 16, 2018 at 14:10 Admission Diagnosis: (1) Adjustment disorder with depressed mood ICD Code: F43.21 - Adjustment disorder with depressed mood Brief History Mr. Antonio is a 47-year-old male with a chart history of adjustment disorder, substance related mood disorder, personality disorder who presented to the emergency department voluntarily for psychiatric evaluation. He was most recently psychiatrically admitted here under Dr. Yuosif in 2013. Electronic medical record reviewed. Patient seen and examined. Chart reviewed. Case discussed with nursing staff. On my examination today, patient is an inconsistent historian. For example, he denies audiovisual hallucinations to me but reported them to the psychiatric screener. Likewise, the patient reported a legal history to the psychiatric screener but denies this to me. I also gather that the patient has a significant substance use history, but he denies any such issues to me. Some degree of manipulation/secondary gain is certainly in the differential. In any event, the patient reports to me that for the last few weeks he has been feeling increasingly sad and depressed. He tells me that he has suffered a lot of losses. He endorses a perfusion of psychiatric symptoms including poor sleep , poor appetite, poor energy, decreased self-care, social withdrawal, anxiety/ worry, nightmares/flashbacks to history of trauma to name a few. He denies any audiovisual hallucinations presently. I can appreciate no delusional material. He reports that he was contemplating suicide yesterday evening although he denies any suicidal ideation presently. No reported urge to hurt himself on the inpatient unit. No hypomanic or manic symptoms presently, nor can I elicit any history consistent with hypomania or solitario. He tells me "life has been a horrible freakin' struggle." Remainder of the psychiatric ROS is negative. No acute physical complaints although the patient does have numerous chronic musculoskeletal pain complaints. Past psychiatric history: The patient is unsure of previous psychiatric diagnoses. He is not presently under the care of a psychiatrist. Most recent psychiatric admission was here at [facility]. He denies a history of suicide attempts noting "I usually come here" first. He reports that trazodone has caused priapism in the past, and I have added this as an adverse reaction. He reports that he has done the best with Strattera and Xanax, although in context there seems to be a distinct possibility that he is simply seeking for these medications. Family history: The patient endorses family history of some sort of mental illness although he is unsure of what. He denies a family history of suicide. Chemical dependency history: The patient denies any abuse of drugs or alcohol. Social history: The patient reports that he is living with his of 20 years. He describes their relationship as "confusing." He has 3 children. He has 11 grade education. He describes himself as "partially disabled." He denies any or legal history, although psychiatric screener did document released from residential in the fall of last year. He denies any access to guns or firearms. He is a [employer] and says that this is a significant source of support for him. He endorses a history of some sort of childhood trauma. Tobacco Use In Past 30 Days: No Tobacco Past 30 Days Alcohol Use: Monthly or Less Hospital Course Patient's hospital course was uneventful, he was no significant behavioral problems, the some initial isolation that did slowly resolve. He showed compliance with his medication. In some participation of the groups. He now denies suicidality homicidality voice or visions. He states she has had good conversations with his . It appears they will be reuniting when he is discharged from here. Less of the stomach feel he has reached maximum benefit of this hospitalization. Patient be discharged today to himself with Rx 1 month follow-up [facility] Results Blood Pressure 94 / 55 Vital Signs Date Time Temp Pulse Resp B/P (MAP) Pulse Ox O2 Delivery O2 Flow Rate FiO2 02/24/18 05:19 98.2 60 16 94/55 (68) 99 Laboratory Results Test 02/17/18 14:08 Cholesterol Level 173 MG/DL (120-200) HDL Cholesterol 33.9 MG/DL (40.0-60.0) Hemoglobin A1c 5.9 % (4.3-6.0) LDL Cholesterol 96 MG/DL (0-99) Triglycerides Level 218 MG/DL (42-150) Summary of Procedures None done Pending results at discharge: No Medications # of Antipsychotic meds at D/C: 0 Approp Antipsych med options 1 - Minimum of three failed multiple trials of monotherapy. 2 - Documented plan to taper to monotherapy due to previous use of multiple meds OR cross-taper in progress at D/C. 3 - Documentation of augmentation of Clozapine. 4 - Justification other than those listed in allowable values 1-3, document here : Discharge Discharge Date: Feb 24, 2018 Discharge Diagnosis: (1) Adjustment disorder with depressed mood Diagnosis: Principal ICD Code: F43.21 - Adjustment disorder with depressed mood Pt Condition on Discharge: Stable Discharge Disposition: Discharge Home Discharge Instructions Diet Instructions: As Tolerated, No Restrictions Activities you can perform: Regular-No Restrictions Scheduled Appointment: Nas Arevalo Appointment Date: Feb 24, 2018 Appointment Time: 8:00-3:00 Discharge Time > 30 minutes Mental Status Examination Appearance: Disheveled Consciousness: Alert Orientation: x4 Motor Activity: Other (No abnormal motor movements noted) Speech: Hesitant Language: Adequate Fund of Knowledge: Adequate Attention and Concentration: Adequate Memory: Unremarkable (Grossly intact on clinical exam) Mood: Irritable, Other (Dysphoric) Affect: Other (Restricted) Thought Process & Associations: Intact Thought Content: Appropriate Hallucination Type: None Delusion Type: None Suicidal Ideation: No (No SI presently but see above) Homicidal Ideation: No Insight: Fair Judgment: Impulsive Discharge/Advance Care Plan Health Problems: (1) Adjustment disorder with depressed mood Goals to promote your health * To prevent worsening of your condition and complications * To maintain your health at the optimal level Directions to meet your goals Take your medications as prescribed Follow your dietary instruction Follow activity as directed Keep your appointments as scheduled Take your immunizations and boosters as scheduled If your symptoms worsen call your PCP, if no PCP go to Urgent Care Center or Emergency Room For 18/04 questions related to your inpatient stay or results of tests pending at discharge, please contact Dr. Kevyn Tracy at Smoking is Dangerous to Your Health. Avoid second hand smoking Kevyn Tracy MD Feb 24, 2018 14:26
== END 2018-02-24 15:10 | disposition home or self-care (01) | DRG 881 ==
LOC: NEPJ 17:21 → NEDA 02-16 14:10 → H260 02-16 15:57
PROVIDERS: ADMIT Psychiatry & Neurology Psychiatry; ATTEND Psychiatry & Neurology Psychiatry
DX: F43.21 Adjustment disorder with depressed mood (principal); I69.354 Hemiplegia and hemiparesis following cerebral infarction affecting left non-dominant side; F17.210 Nicotine dependence, cigarettes, uncomplicated; Z59.0 Homelessness; G89.29 Other chronic pain; M54.9 Dorsalgia, unspecified
CPT/HCPCS: 80048; 80053; 80061; 80307; 83036; 84443; 85025; 99285; Q0163

== ENCOUNTER 2018-02-24 18:52 | Emergency (ER) | payer MEDICARE, OTHER ==
[~2018-02-24] VITALS: Ht 185.4 cm; Wt 818.2 kg
[~2018-02-24 18:52] MED LIST changes: -COUM10TA PO; +DIVA250T PO; +DULO1CAP2 PO; -HYDR-3129 PO; -LIPI10TA PO; +LITH300T PO; -LORA-474 PO; +PAXI30TA7 PO; +REME30TA PO
[2018-02-24 19:02] VITALS: BP 133/83; PULSE 130; RESP 14; O2SAT 95
[2018-02-24] MEDS ORDERED: SODIUM CHLOR 0.9% 1000 ML INJ 1,000 ML IV ONE (19:14)
[2018-02-24] MEDS ORDERED: SODIUM CHLORIDE 0.9% FLUSH 10 ML FLUSH IVF PRN (19:15)
--- NOTE | 2018-02-24 19:23 | PD ---
HPI Chief Complaint: OD/ Ingestion Time Seen by Provider: 19:14 Travel History International Travel<30 days: No Contact w/Intl Traveler<30days: No Traveled to known affect area: No History of Present Illness HPI 47-year-old male patient with history of psychiatric issues, previous stroke, recently released from psychiatry, and states that he was very stressed out and wanted to take care of his pain issues,, was found unresponsive and diaphoretic according to EMS, had been given Narcan 0.4 mg, and is now awake. He does not know what happens. He denies any injuries or any other issues. He denies any suicidal ideation. He states that he had taken "Stypi white". Modifying Factors: None Associated Signs & Symptoms: Suspected opiate overdose Risk Factors: None PFSH Past Medical History Arthritis: No Asthma: No Autoimmune Disease: No Blood Disorders: No Anxiety: Yes Depression: Yes Heart Rhythm Problems: No Cancer: No Cardiovascular Problems: No High Cholesterol: No Chemotherapy: No Chest Pain: No Congestive Heart Failure: No COPD: No Cerebrovascular Accident: Yes (2008 & TIA in 2013) Diabetes: No Diminished Hearing: No Endocrine: No GERD: No Glaucoma: No Genitourinary: No Headaches: No Hepatitis: No Hiatal Hernia: No Hypertension: No Immune Disorder: No Kidney Stones: No Musculoskeletal: Yes (L5/S1 HERNIATION AND SLIPPED DISK) Neurologic: Yes Psychiatric: Yes Reproductive: No Respiratory: No Immunizations Current: No Migraines: No Myocardial Infarction: No Radiation Therapy: No Renal Failure: No Seizures: No Sickle Cell Disease: No Sleep Apnea: No Thyroid Disease: No Ulcer: No Past Surgical History Abdominal Surgery: No AICD: No Appendectomy: No Arteriovenous Shunt: No Cardiac Surgery: No Cholecystectomy: No Ear Surgery: No Endocrine Surgery: No Eye Surgery: No Genitourinary Surgery: No Gynecologic Surgery: No Insulin Pump: No Joint Replacement: No Oral Surgery: No Pacemaker: No Thoracic Surgery: No Social History Alcohol Use: Yes (today) Tobacco Use: Yes (1PPD) Substance Use: Yes (opiates marijuana) Allergies-Medications (Allergen,Severity, Reaction): Coded Allergies: trazodone (Unverified Allergy, Unknown, 02/24/18) Priapism Reported Meds & Prescriptions Reported Meds & Active Scripts Active Remeron (Mirtazapine) 30 Mg Tab 30 Mg PO HS Duloxetine DR (Duloxetine HCl) 30 Mg Capdr 30 Mg PO BID Divalproex DR (Divalproex Sodium) 250 Mg Tabdr 250 Mg PO Q12HR Review of Systems Except as stated in HPI: all other systems reviewed are Neg Physical Exam Narrative GENERAL: Well-developed middle-aged male patient currently in mild distress. Awake and oriented 3. SKIN: Focused skin assessment warm/dry. HEAD: Atraumatic. Normocephalic. EYES: Pupils equal and round. No scleral icterus. No injection or drainage. ENT: No nasal bleeding or discharge. Mucous membranes pink and moist. NECK: Trachea midline. No JVD. CARDIOVASCULAR: Regular rate and rhythm. No murmur appreciated. RESPIRATORY: No accessory muscle use. Clear to auscultation. Breath sounds equal bilaterally. GASTROINTESTINAL: Abdomen soft, non-tender, nondistended. Hepatic and splenic margins not palpable. MUSCULOSKELETAL: No obvious deformities. No clubbing. No cyanosis. No edema. NEUROLOGICAL: Awake and alert. No obvious cranial nerve deficits. Motor grossly within normal limits. Normal speech. PSYCHIATRIC: Appropriate mood and affect; insight and judgment normal. Data Data Last Documented VS Vital Signs Date Time Temp Pulse Resp B/P (MAP) Pulse Ox O2 Delivery O2 Flow Rate FiO2 02/24/18 20:19 14 94 Room Air 02/24/18 19:02 130 133/83 (100) Orders Orders Electrocardiogram (02/24/18 19:14) Complete Blood Count With Diff (02/24/18 19:14) Comprehensive Metabolic Panel (02/24/18 19:14) Iv Access Insert/Monitor (02/24/18 19:14) Ecg Monitoring (02/24/18 19:14) Oximetry (02/24/18 19:14) Sodium Chloride 0.9% Flush (Ns Flush) (02/24/18 19:15) Sodium Chlor 0.9% 1000 Ml Inj (Ns 1000 M (02/24/18 19:14) Drug Screen, Random Urine (02/24/18 19:14) Alcohol (Ethanol) (02/24/18 19:14) Salicylates (Aspirin) (02/24/18 19:14) Tylenol (Acetaminophen) (02/24/18 19:14) Ed Discharge Order (02/24/18 23:07) Labs Laboratory Tests Test 02/24/18 19:39 02/24/18 21:27 White Blood Count 10.0 TH/MM3 Red Blood Count 5.08 MIL/MM3 Hemoglobin 14.7 GM/DL Hematocrit 43.8 % Mean Corpuscular Volume 86.3 FL Mean Corpuscular Hemoglobin 28.9 PG Mean Corpuscular Hemoglobin Concent 33.5 % Red Cell Distribution Width 15.4 % Platelet Count 424 TH/MM3 Mean Platelet Volume 7.1 FL Neutrophils (%) (Auto) 46.6 % Lymphocytes (%) (Auto) 39.5 % Monocytes (%) (Auto) 10.1 % Eosinophils (%) (Auto) 2.9 % Basophils (%) (Auto) 0.9 % Neutrophils # (Auto) 4.7 TH/MM3 Lymphocytes # (Auto) 3.9 TH/MM3 Monocytes # (Auto) 1.0 TH/MM3 Eosinophils # (Auto) 0.3 TH/MM3 Basophils # (Auto) 0.1 TH/MM3 CBC Comment DIFF FINAL Differential Comment Blood Urea Nitrogen 22 MG/DL Creatinine 1.13 MG/DL Random Glucose 126 MG/DL Total Protein 7.9 GM/DL Albumin 3.8 GM/DL Calcium Level 8.8 MG/DL Alkaline Phosphatase 61 U/L Aspartate Amino Transf (AST/SGOT) 23 U/L Alanine Aminotransferase (ALT/SGPT) 21 U/L Total Bilirubin 0.3 MG/DL Sodium Level 136 MEQ/L Potassium Level 4.4 MEQ/L Chloride Level 100 MEQ/L Carbon Dioxide Level 24.4 MEQ/L Anion Gap 12 MEQ/L Estimat Glomerular Filtration Rate 70 ML/MIN Acetaminophen Level LESS THAN 2.0 MCG/ML Ethyl Alcohol Level 6 MG/DL Urine Opiates Screen NEG Urine Barbiturates Screen NEG Urine Amphetamines Screen NEG Urine Benzodiazepines Screen NEG Urine Cocaine Screen NEG Urine Cannabinoids Screen NEG MDM Medical Decision Making Medical Screen Exam Complete: Yes Emergency Medical Condition: Yes Medical Record Reviewed: Yes Interpretation(s) EKG shows NSR, no ST elevation or depression, and no arrhythmias. No significant T-wave inversions. Laboratory Tests Test 02/24/18 19:39 Monocytes (%) (Auto) 10.1 % (0.0-8.0) Monocytes # (Auto) 1.0 TH/MM3 (0-0.9) Blood Urea Nitrogen 22 MG/DL (7-18) Random Glucose 126 MG/DL (74-106) Estimat Glomerular Filtration Rate 70 ML/MIN (>89) Acetaminophen Level LESS THAN 2.0 MCG/ML Ethyl Alcohol Level 6 MG/DL (0-5) Differential Diagnosis Opiate overdose Narrative Course He does not have a significant amount of alcohol on board. He is observed in the ER until 11 PM and is doing well. Vital signs remained stable. He is awake and completely oriented. He states that he took the medications at around 5 PM. At this point, he denies any suicidal or homicidal ideation. He states it is him "mistake". He wants to go home at this point and my plan would be to release him with follow-up to primary care doctor. Return for any worsening in symptoms, he states he will go home and be with his today. The plan was discussed with the patient and he states understanding. He should avoid further use of drugs and avoid alcohol use. Diagnosis Primary Impression: Opiate overdose Disposition: 01 DISCHARGE HOME Condition: Stable India Nascimento MD Feb 24, 2018 19:23
[2018-02-24 20:08] LABS: AUTOMATED NEUTROPHIL # 4.7 TH/MM3 (1.8-7.7); BASOPHIL # 0.1 TH/MM3 (0-0.2); BASOPHIL % 0.9 % (0.0-2.0); EOSINOPHIL # 0.3 TH/MM3 (0-0.4); EOSINOPHIL % 2.9 % (0.0-4.0); HEMATOCRIT 43.8 % (39.0-51.0); HEMOGLOBIN 14.7 GM/DL (13.0-17.0); LYMPH % 39.5 % (9.0-44.0); LYMPHOCYTE # 3.9 TH/MM3 (1.0-4.8); MEAN CELL VOLUME 86.3 FL (80.0-100.0); MEAN CORPUSCULAR HEMOGLOBIN 28.9 PG (27.0-34.0); MEAN CORPUSCULAR HGB CONC 33.5 % (32.0-36.0); MEAN PLATELET VOLUME 7.1 FL (7.0-11.0); MONO % 10.1 % (0.0-8.0); NEUT % 46.6 % (16.0-70.0); PLATELET COUNT 424 TH/MM3 (150-450); RED BLOOD COUNT 5.08 MIL/MM3 (4.50-5.90); RED CELL DISTRIBUTION WIDTH 15.4 % (11.6-17.2)
[2018-02-24 20:19] VITALS: RESP 14; O2SAT 94
[2018-02-24 20:32] LABS: ALT (GPT) 21 U/L (12-78)
[2018-02-24 20:35] LABS: ALKALINE PHOSPHATASE 61 U/L (45-117); TOTAL BILIRUBIN ADULT 0.3 MG/DL (0.2-1.0); TOTAL PROTEIN 7.9 GM/DL (6.4-8.2)
[2018-02-24 20:44] LABS: ALBUMIN 3.8 GM/DL (3.4-5.0); AST (GOT) 23 U/L (15-37); BICARBONATE 24.4 MEQ/L (21.0-32.0); BLOOD UREA NITROGEN 22 MG/DL (7-18); CALCIUM 8.8 MG/DL (8.5-10.1); CHLORIDE 100 MEQ/L (98-107); CREATININE 1.13 MG/DL (0.60-1.30); GLOMERULAR FILTRATION RATE 70 ML/MIN (>89); GLUCOSE,RANDOM 126 MG/DL (74-106); SODIUM (NA) 136 MEQ/L (136-145)
[2018-02-24 20:46] LABS: ACETAMINOPHEN LESS THAN 2.0 MCG/ML (10.0-30.0)
[2018-02-24 23:08] VITALS: BP 133/75; PULSE 84; RESP 16; O2SAT 96
--- NOTE | 2018-02-25 14:41 | EKG ---
Date Performed: 02/24/2018 Time Performed: 20:27:20 PTAGE: 47 years EKG: Sinus rhythm Within normal limits PREVIOUS TRACING : 08/03/2014 14.25 Since the previous tracing, no significant change not ed DOCTOR: Neal Felipe Interpretating Date/Time 02/25/2018 14:40:47
== END 2018-02-24 23:40 | disposition home or self-care (01) ==
LOC: NEPE 18:52
DX: T40.601A Poisoning by unspecified narcotics, accidental (unintentional), initial encounter (principal); F17.200 Nicotine dependence, unspecified, uncomplicated; F11.90 Opioid use, unspecified, uncomplicated; F12.90 Cannabis use, unspecified, uncomplicated; F41.9 Anxiety disorder, unspecified; F32.9 Major depressive disorder, single episode, unspecified; Z86.73 Personal history of transient ischemic attack (TIA), and cerebral infarction without residual deficits; Z79.899 Other long term (current) drug therapy
CPT/HCPCS: 80053; 80307; 85025; 93005; 96360; 99284; J7030

== ENCOUNTER 2018-03-06 08:24 | Emergency (ER) | payer MEDICARE, OTHER ==
[~2018-03-06] VITALS: Ht 188 cm; Wt 80.0 kg
[~2018-03-06 08:24] MED LIST changes: -LITH300T PO; -PAXI30TA7 PO
[2018-03-06 08:29] VITALS: BP 158/83; PULSE 98; RESP 16; TEMP 97.7; O2SAT 99
--- NOTE | 2018-03-06 08:45 | PD ---
HPI Chief Complaint: Suicide Ideation/Attempt Time Seen by Provider: 08:35 Travel History International Travel<30 days: No Contact w/Intl Traveler<30days: No Traveled to known affect area: No History of Present Illness HPI Patient comes emergency department requesting psychiatric evaluation. Patient reports having suicidal ideations over the past couple of weeks. Denies any homicidal ideations. Patient reports he tried cutting his wrist about 10-15 years ago denies any other suicide attempts. Denies plans currently. Denies any medical complaints or concerns currently. Denies anything making symptoms better or worse. Patient states he has been homeless for the past week. PFSH Past Medical History Arthritis: No Asthma: No Autoimmune Disease: No Blood Disorders: No Anxiety: Yes Depression: Yes Heart Rhythm Problems: No Cancer: No Cardiovascular Problems: No High Cholesterol: No Chemotherapy: No Chest Pain: No Congestive Heart Failure: No COPD: No Cerebrovascular Accident: Yes (2009 & TIA in 2013) Diabetes: No Diminished Hearing: No Endocrine: No GERD: No Glaucoma: No Genitourinary: No Headaches: No Hepatitis: No Hiatal Hernia: No Hypertension: No Immune Disorder: No Kidney Stones: No Musculoskeletal: Yes (L5/S1 HERNIATION AND SLIPPED DISK) Neurologic: Yes Psychiatric: Yes Reproductive: No Respiratory: No Immunizations Current: No Migraines: No Myocardial Infarction: No Radiation Therapy: No Renal Failure: No Seizures: No Sickle Cell Disease: No Sleep Apnea: No Thyroid Disease: No Ulcer: No Past Surgical History Abdominal Surgery: No AICD: No Appendectomy: No Arteriovenous Shunt: No Cardiac Surgery: No Cholecystectomy: No Ear Surgery: No Endocrine Surgery: No Eye Surgery: No Genitourinary Surgery: No Gynecologic Surgery: No Insulin Pump: No Joint Replacement: No Oral Surgery: No Pacemaker: No Thoracic Surgery: No Social History Alcohol Use: Yes (today) Tobacco Use: Yes (1PPD) Substance Use: Yes (opiates marijuana) Allergies-Medications (Allergen,Severity, Reaction): Coded Allergies: trazodone (Unverified Allergy, Unknown, 02/24/18) Priapism Reported Meds & Prescriptions Reported Meds & Active Scripts Active Remeron (Mirtazapine) 30 Mg Tab 30 Mg PO HS Duloxetine DR (Duloxetine HCl) 30 Mg Capdr 30 Mg PO BID Divalproex DR (Divalproex Sodium) 250 Mg Tabdr 250 Mg PO Q12HR Review of Systems Except as stated in HPI: all other systems reviewed are Neg Physical Exam Narrative GENERAL: Well-developed, well nourished, in no acute distress, and non-ill appearing. SKIN: Focused skin assessment warm and dry. HEAD: Atraumatic. Normocephalic. EYES: Pupils equal and round. EOMI. No scleral icterus. No injection or drainage. ENT: No nasal bleeding or discharge. Mucous membranes pink and moist. NECK: Trachea midline. Supple. No nuclear rigidity. CARDIOVASCULAR: Regular rate and rhythm. No murmur appreciated. RESPIRATORY: No accessory muscle use. No respiratory distress. Clear to auscultation. Breath sounds equal bilaterally. MUSCULOSKELETAL: No obvious deformities. No clubbing. No cyanosis. No edema. Decreased range of motion left upper extremity from previous stroke patient reports is unchanged. NEUROLOGICAL: Awake and alert. No obvious cranial nerve deficits. Motor grossly within normal limits. Normal speech. PSYCHIATRIC: Appropriate mood and affect. Data Data Last Documented VS Vital Signs Date Time Temp Pulse Resp B/P (MAP) Pulse Ox O2 Delivery O2 Flow Rate FiO2 03/06/18 08:29 97.7 98 16 158/83 (108) 99 Orders Orders Complete Blood Count With Diff (03/06/18 08:42) Comprehensive Metabolic Panel (03/06/18 08:42) Thyroid Stimulating Hormone (03/06/18 08:42) Psych Screen (03/06/18 08:42) Drug Screen, Random Urine (03/06/18 08:42) Alcohol (Ethanol) (03/06/18 08:42) Salicylates (Aspirin) (03/06/18 08:42) Tylenol (Acetaminophen) (03/06/18 08:42) Diet Regular Basic (03/06/18 Lunch) Ibuprofen (Motrin) (03/06/18 14:00) Divalproex Er (Depakote Er) (03/06/18 14:00) Duloxetine Dr (Cymbalaugusto Shaw) (03/06/18 14:00) Hydroxyzine Pamoate (Vistaril) (03/06/18 14:00) Labs Laboratory Tests Test 03/06/18 08:50 03/06/18 09:55 White Blood Count 7.4 TH/MM3 Red Blood Count 5.10 MIL/MM3 Hemoglobin 15.2 GM/DL Hematocrit 44.1 % Mean Corpuscular Volume 86.5 FL Mean Corpuscular Hemoglobin 29.8 PG Mean Corpuscular Hemoglobin Concent 34.5 % Red Cell Distribution Width 15.6 % Platelet Count 403 TH/MM3 Mean Platelet Volume 7.2 FL Neutrophils (%) (Auto) 63.9 % Lymphocytes (%) (Auto) 24.4 % Monocytes (%) (Auto) 8.6 % Eosinophils (%) (Auto) 2.1 % Basophils (%) (Auto) 1.0 % Neutrophils # (Auto) 4.7 TH/MM3 Lymphocytes # (Auto) 1.8 TH/MM3 Monocytes # (Auto) 0.6 TH/MM3 Eosinophils # (Auto) 0.2 TH/MM3 Basophils # (Auto) 0.1 TH/MM3 CBC Comment DIFF FINAL Differential Comment Blood Urea Nitrogen 9 MG/DL Creatinine 1.02 MG/DL Random Glucose 112 MG/DL Total Protein 7.9 GM/DL Albumin 3.5 GM/DL Calcium Level 9.2 MG/DL Alkaline Phosphatase 64 U/L Aspartate Amino Transf (AST/SGOT) 9 U/L Alanine Aminotransferase (ALT/SGPT) 18 U/L Total Bilirubin 0.7 MG/DL Sodium Level 138 MEQ/L Potassium Level 4.2 MEQ/L Chloride Level 105 MEQ/L Carbon Dioxide Level 24.0 MEQ/L Anion Gap 9 MEQ/L Estimat Glomerular Filtration Rate 78 ML/MIN Thyroid Stimulating Hormone 3rd Gen 0.159 uIU/ML Salicylates Level 3.5 MG/DL Acetaminophen Level LESS THAN 2.0 MCG/ML Ethyl Alcohol Level LESS THAN 3 MG/DL Urine Opiates Screen NEG Urine Barbiturates Screen NEG Urine Amphetamines Screen NEG Urine Benzodiazepines Screen NEG Urine Cocaine Screen NEG Urine Cannabinoids Screen POS [facility] Medical Decision Making Medical Screen Exam Complete: Yes Emergency Medical Condition: Yes Differential Diagnosis Depression, substance abuse, psychosis, suicidal, homicidal, homeless, metabolic disturbance Narrative Course Patient was seen and examined. Labs were obtained and reviewed with the exception of urine drug screen has not been collected yet. Discussed laboratory findings of low TSH with patient and emphasized importance of follow- up outpatient for further evaluation of this. Patient medically cleared for further treatment and evaluation by psych. Final disposition per psych. Diagnosis Primary Impression: Low thyroid stimulating hormone (TSH) level Additional Impression: Medical clearance for psychiatric admission Referrals: [facility] Patient Instructions: General Instructions, Hyperthyroidism (ED) Additional Instructions: Follow-up with your primary care physician for further evaluation of your low thyroid stimulating hormone noted here today. Follow-up with Nas Sylvester tomorrow. Return to the emergency department if symptoms get worse. Condition: Stable Mark Hollis Mar 06, 2018 08:45
[2018-03-06 09:16] LABS: AUTOMATED NEUTROPHIL # 4.7 TH/MM3 (1.8-7.7); BASOPHIL # 0.1 TH/MM3 (0-0.2); EOSINOPHIL # 0.2 TH/MM3 (0-0.4); EOSINOPHIL % 2.1 % (0.0-4.0); HEMATOCRIT 44.1 % (39.0-51.0); HEMOGLOBIN 15.2 GM/DL (13.0-17.0); LYMPH % 24.4 % (9.0-44.0); LYMPHOCYTE # 1.8 TH/MM3 (1.0-4.8); MEAN CELL VOLUME 86.5 FL (80.0-100.0); MEAN CORPUSCULAR HEMOGLOBIN 29.8 PG (27.0-34.0); MEAN CORPUSCULAR HGB CONC 34.5 % (32.0-36.0); MEAN PLATELET VOLUME 7.2 FL (7.0-11.0); MONO % 8.6 % (0.0-8.0); MONOCYTE # 0.6 TH/MM3 (0-0.9); NEUT % 63.9 % (16.0-70.0); PLATELET COUNT 403 TH/MM3 (150-450); RED CELL DISTRIBUTION WIDTH 15.6 % (11.6-17.2); WHITE BLOOD COUNT 7.4 TH/MM3 (4.0-11.0)
[2018-03-06 09:34] LABS: ALBUMIN 3.5 GM/DL (3.4-5.0); AST (GOT) 9 U/L (15-37); BLOOD UREA NITROGEN 9 MG/DL (7-18); CALCIUM 9.2 MG/DL (8.5-10.1); CHLORIDE 105 MEQ/L (98-107); CREATININE 1.02 MG/DL (0.60-1.30); GLOMERULAR FILTRATION RATE 78 ML/MIN (>89); GLUCOSE,RANDOM 112 MG/DL (74-106); SODIUM (NA) 138 MEQ/L (136-145)
[2018-03-06 09:45] LABS: ALKALINE PHOSPHATASE 64 U/L (45-117); ALT (GPT) 18 U/L (12-78); TOTAL BILIRUBIN ADULT 0.7 MG/DL (0.2-1.0); TOTAL PROTEIN 7.9 GM/DL (6.4-8.2)
[2018-03-06 09:50] LABS: ACETAMINOPHEN LESS THAN 2.0 MCG/ML (10.0-30.0)
[2018-03-06] MEDS ORDERED: DULoxetine HCl DR 30 MG CAP PO ONE (14:00)
[2018-03-06] MEDS ORDERED: hydrOXYzine PAMOATE 25 MG CAP PO ONE (14:00)
[2018-03-06] MEDS ORDERED: IBUPROFEN 600 MG TAB PO ONE (14:00)
[2018-03-06] MEDS ORDERED: DIVALPROEX SODIUM E.R. 250 MG TAB PO ONE (14:00)
--- NOTE | 2018-03-06 15:16 | PD ---
History of Present Illness Chief Complaint: Suicide Ideation/Attempt Time Seen by Provider: 12:27 Travel History International Travel<30 Days: No Contact w/Intl Traveler<30days: No Known affected area: No Legal Status Legal Status: Voluntary History of Present Illness: This is a 47-year-old, , male who presents voluntarily to this facility for self-reported suicidal ideation and depression. Patient is known to this facility and was recently admitted on the psychiatric unit from February 16 - February 24, 2018. At which time he reported no longer feeling suicidal or homicidal and was discharged with follow-up instructions at [facility]. Patient was brought back in on February 24 to the emergency room for an opiate overdose. Again, the patient claimed that he was not suicidal reported to the emergency room physician that he was self-medicating for pain and that his overdose was an accident. Today patient arrives at this facility stating that he has been suicidal for over a week now. Reviewed electronic medical record, labs, discuss case with staff. Patient was found awake, alert, and oriented 4 in his hospital bed in the main ED. He was evaluated with Dipesh Gleason director of casework department and SMA Mickey director of casework department present at the bedside. Patient reports that he feels helpless and hopeless and he admits to being homeless. His speech is clear, logical, and organized. There is no indication of internal stimulation nor thought blocking. I can elicit no delusional material or manic symptoms. The patient reports that he has been having marital problems and his recently took his children in the left. He states that his house was foreclosed on. He reports that reports that he feels depressed, paranoid, and anxious. He states that he sometimes feels like I "do not want to live". When asked if he had a plan he responds, "yeah, but nothing I wanted to discuss with you". He endorses auditory hallucinations and states that he hears voices that "tell me to hurt myself" he also endorses that they tell him "life is not worth living and such". Patient does have a history of incarceration. When the [facility] director of casework department advised the patient he left 2 messages with him the patient claimed that he does not check his messages. There was no follow-up since patient left this facility. He reports that he did not feel that the medication helped him "so I get it filled anyway". He denies feeling homicidal or having visual hallucinations. [facility] Past Medical History Arthritis: No Asthma: No Autoimmune Disease: No Blood Disorders: No Anxiety: Yes Depression: Yes Heart Rhythm Problems: No Cancer: No Cardiovascular Problems: No High Cholesterol: No Chemotherapy: No Chest Pain: No Congestive Heart Failure: No COPD: No Cerebrovascular Accident: Yes (2009 & TIA in 2013) Diabetes: No Diminished Hearing: No Endocrine: No GERD: No Glaucoma: No Genitourinary: No Headaches: No Hepatitis: No Hiatal Hernia: No Hypertension: No Immune Disorder: No Kidney Stones: No Musculoskeletal: Yes (L5/S1 HERNIATION AND SLIPPED DISK) Neurologic: Yes Psychiatric: Yes Reproductive: No Respiratory: No Immunizations Current: No Migraines: No Myocardial Infarction: No Radiation Therapy: No Renal Failure: No Seizures: No Sickle Cell Disease: No Sleep Apnea: No Thyroid Disease: No Ulcer: No Past Surgical History Abdominal Surgery: No AICD: No Appendectomy: No Arteriovenous Shunt: No Cardiac Surgery: No Cholecystectomy: No Ear Surgery: No Endocrine Surgery: No Eye Surgery: No Genitourinary Surgery: No Gynecologic Surgery: No Insulin Pump: No Joint Replacement: No Oral Surgery: No Pacemaker: No Thoracic Surgery: No Psychiatric History Psychiatric History Patient was discharged after being admitted from February 16 - February 24 of this year. He failed to fill his prescriptions or follow-up at [facility]. Hx Psychiatric Treatment: he was inpatient in past and states he has not seen a psychiatrist on the outside and asked there is no one to help you with needs in the community History of Inpatient Treatment: Yes Social History Patient was asked to be felt he had a drug problem and he responded "my only problem is I cannot get enough drugs". Hx Alcohol Use: Yes (today) Hx Tobacco Use: Yes (1PPD) Hx Substance Use: Yes (opiates marijuana) Substance Use Type: Marijuana Other Substances Used: BENZOS METHADONE Hx of Substance Use Treatment: No Allergies-Medications (Allergen,Severity, Reaction): Coded Allergies: trazodone (Unverified Allergy, Unknown, 02/24/18) Priapism Reported Meds & Prescriptions Reported Meds & Active Scripts Active Remeron (Mirtazapine) 30 Mg Tab 30 Mg PO HS Duloxetine DR (Duloxetine HCl) 30 Mg Capdr 30 Mg PO BID Divalproex DR (Divalproex Sodium) 250 Mg Tabdr 250 Mg PO Q12HR Review of Systems Musculoskeletal: COMPLAINS OF: Back pain Except as stated in HPI: all other systems reviewed are Neg MDM Medical Decision Making Medical Record Reviewed: Yes Assessment/Plan 47-year-old , male who reports to this facility for self- reported suicidal ideation. Upon examination today I find the patient awake, alert, and oriented 4. He was examined with the [facility] director of casework department present. When asked why he did not follow up he stated "the medicines were working anyway " although, by his own admission when he was discharged on February 24 he was no longer feeling suicidal or homicidal and was feeling better. Additionally he was brought back that same day to this facility for a opiate overdose where he again expressed to the medical physician that he did not feel suicidal or homicidal. At this point I do not believe another admission would benefit this patient therapeutically. Therefore, I have ordered him his medications for today. He is to be placed at [facility] with his [facility] paying this months fee as the patient claims to have spent all him his disability that he received last week. He has an appointment to follow-up at [facility] outpatient tomorrow. Given the patient's reaction to the resources that have been put in place for him, I do feel that is likely he has some cluster B personality traits and is malingering in an effort to find longterm. However, he will be provided with all the resources he needs to be safe and successful. It will be up to him to utilize them. He will be instructed to return to this facility if required. Orders Orders Complete Blood Count With Diff (03/06/18 08:42) Comprehensive Metabolic Panel (03/06/18 08:42) Thyroid Stimulating Hormone (03/06/18 08:42) Psych Screen (03/06/18 08:42) Drug Screen, Random Urine (03/06/18 08:42) Alcohol (Ethanol) (03/06/18 08:42) Salicylates (Aspirin) (03/06/18 08:42) Tylenol (Acetaminophen) (03/06/18 08:42) Diet Regular Basic (03/06/18 Lunch) Ibuprofen (Motrin) (03/06/18 14:00) Divalproex Er (Depakote Er) (03/06/18 14:00) Duloxetine Dr (Cymbalta Dr) (03/06/18 14:00) Hydroxyzine Pamoate (Vistaril) (03/06/18 14:00) Results Vital Signs Date Time Temp Pulse Resp B/P (MAP) Pulse Ox O2 Delivery O2 Flow Rate FiO2 03/06/18 08:29 97.7 98 16 158/83 (108) 99 Laboratory Tests Test 03/06/18 08:50 03/06/18 09:55 White Blood Count 7.4 Red Blood Count 5.10 Hemoglobin 15.2 Hematocrit 44.1 Mean Corpuscular Volume 86.5 Mean Corpuscular Hemoglobin 29.8 Mean Corpuscular Hemoglobin Concent 34.5 Red Cell Distribution Width 15.6 Platelet Count 403 Mean Platelet Volume 7.2 Neutrophils (%) (Auto) 63.9 Lymphocytes (%) (Auto) 24.4 Monocytes (%) (Auto) 8.6 Eosinophils (%) (Auto) 2.1 Basophils (%) (Auto) 1.0 Neutrophils # (Auto) 4.7 Lymphocytes # (Auto) 1.8 Monocytes # (Auto) 0.6 Eosinophils # (Auto) 0.2 Basophils # (Auto) 0.1 CBC Comment DIFF FINAL Differential Comment Blood Urea Nitrogen 9 Creatinine 1.02 Random Glucose 112 Total Protein 7.9 Albumin 3.5 Calcium Level 9.2 Alkaline Phosphatase 64 Aspartate Amino Transf (AST/SGOT) 9 Alanine Aminotransferase (ALT/SGPT) 18 Total Bilirubin 0.7 Sodium Level 138 Potassium Level 4.2 Chloride Level 105 Carbon Dioxide Level 24.0 Anion Gap 9 Estimat Glomerular Filtration Rate 78 Thyroid Stimulating Hormone 3rd Gen 0.159 Salicylates Level 3.5 Acetaminophen Level LESS THAN 2.0 Ethyl Alcohol Level LESS THAN 3 Urine Opiates Screen NEG Urine Barbiturates Screen NEG Urine Amphetamines Screen NEG Urine Benzodiazepines Screen NEG Urine Cocaine Screen NEG Urine Cannabinoids Screen POS Diagnosis Primary Impression: Adjustment disorder with depressed mood Additional Impressions: Low thyroid stimulating hormone (TSH) level Medical clearance for psychiatric admission Psychiatrically Cleared: Yes Referrals: [facility] Patient Instructions: General Instructions, Hyperthyroidism (ED) Additional Instructions: Follow-up with your primary care physician for further evaluation of your low thyroid stimulating hormone noted here today. Return to the emergency department if symptoms get worse. Med/ Other Pt Specific Info: No Change to Meds Disposition: 01 DISCHARGE HOME Condition: Stable Problem Qualifiers Giovanna Edge Mar 06, 2018 15:16
== END 2018-03-06 18:05 | disposition home or self-care (01) ==
LOC: NEPD 08:24
DX: F43.21 Adjustment disorder with depressed mood (principal); F12.90 Cannabis use, unspecified, uncomplicated; Z79.899 Other long term (current) drug therapy
CPT/HCPCS: 80053; 80307; 84443; 85025; 99283; Q0177